=== PATIENT | female | born 1965 | race Caucasian/White ===

== ENCOUNTER 2018-08-28 18:53 | Emergency (ER) | payer SELFPAY ==
[2018-08-28 18:54] VITALS: BP 165/84; PULSE 94; RESP 17; TEMP 37.3; O2SAT 99; BMI 30.9
[2018-08-28] MEDS: Orphenadrine 60 MG/2 ML Ampul IM (19:46)
[2018-08-28] MEDS: HYDROmorphone 1 MG/ML Syringe SC ×2 (19:46→21:06)
--- NOTE | 2018-08-28 19:48 | ED.VISSUMM ---
- ER Visit Summary Date of Service: 08/28/18 Chief Complaint: Back pain History of Present Illness: The patient is a 52 F with low back pain for 5 days. This happened while she was riding in a car. No specific injuries. Worse with movement and use. Nothing seems to make it better. She tried stretches and juyc-dga-dbjivpa remedies with no improvement. The pain is in her bilateral lower back but worse in the left side and radiates down into her left buttock and left hip. No weakness or numbness. No bowel or bladder changes. No fevers. No history of back surgery, but she has had back injections remotely. She has a history of chronic back pain. Physical Examination: Afebrile and vital signs unremarkable. Alert and oriented. No acute distress. Uncomfortable with movements. Diffuse low back pain with tenderness, more so on the left side and into the left buttock. Straight leg raise is negative. She is neurovascular intact distally. Good strength and sensation, symmetric. Skin unremarkable. Test Results: None indicated Emergency Department Course and Treatment: Patient has myofascial back pain. There is no indication for imaging or other diagnostic testing. She was treated with a dose of Norflex and subcutaneous Dilaudid. Patient was able to stand and ambulate after treatment but was still having a great deal of pain. She received an additional dose of Dilaudid. Patient would like to go home after the second dose. She did not want admission for pain control. Patient was given a prescription for anti-inflammatories, muscle relaxers, and a short course of [place]. Follow-up with primary care or return for any new or worsening issues. Treatment Plan: As above Disposition: Discharge Impression: 1. Sciatica This note was generated with [employer] dictation software. It may contain incorrect words, spelling, and punctuation that were not noted in review of the chart prior to signing ED Disposition - Plan for ED Patient: Disposition: Home or Assisted Living Instructions: ED Spasm Back No Trauma Prescriptions: Hydrocodone Bitart/Apap 5-325 [[place] 5MG-325MG] 1 tab PO Q6H PRN PRN 3 Days #10 tab PRN Reason: Pain RX: Naproxen [Naprosyn] 500 mg PO BID PRN #20 tab Cyclobenzaprine [Flexeril] 10 mg PO TID PRN #20 tab PRN Reason: Muscle Spasm Referrals: Patricia Marshall [NON-STAFF] -
--- NOTE | 2018-08-28 19:52 | ED.DCSUM_ITS ---
- ER Visit Summary Date of Service: 08/28/18 Chief Complaint: Back pain History of Present Illness: The patient is a 52 F with low back pain for 5 days. This happened while she was riding in a car. No specific injuries. Worse with movement and use. Nothing seems to make it better. She tried stretches and gcbe-azu-nrbqnam remedies with no improvement. The pain is in her bilateral lower back but worse in the left side and radiates down into her left buttock and left hip. No weakness or numbness. No bowel or bladder changes. No fevers. No history of back surgery, but she has had back injections remotely. She has a history of chronic back pain. Physical Examination: Afebrile and vital signs unremarkable. Alert and oriented. No acute distress. Uncomfortable with movements. Diffuse low back pain with tenderness, more so on the left side and into the left buttock. Straight leg raise is negative. She is neurovascular intact distally. Good strength and sensation, symmetric. Skin unremarkable. Test Results: None indicated Emergency Department Course and Treatment: Patient has myofascial back pain. There is no indication for imaging or other diagnostic testing. She was treated with a dose of Norflex and subcutaneous Dilaudid. Patient was able to stand and ambulate after treatment but was still having a great deal of pain. She received an additional dose of Dilaudid. Patient would like to go home after the second dose. She did not want admission for pain control. Patient was given a prescription for anti-inflammatories, muscle relaxers, and a short course of [place]. Follow-up with primary care or return for any new or worsening issues. Treatment Plan: As above Disposition: Discharge Impression: 1. Sciatica This note was generated with [employer] dictation software. It may contain incorrect words, spelling, and punctuation that were not noted in review of the chart prior to signing ED Disposition - Plan for ED Patient: Disposition: Home or Assisted Living Instructions: ED Spasm Back No Trauma Prescriptions: Hydrocodone Bitart/Apap 5-325 [[place] 5MG-325MG] 1 tab PO Q6H PRN PRN 3 Days #10 tab PRN Reason: Pain RX: Naproxen [Naprosyn] 500 mg PO BID PRN #20 tab Cyclobenzaprine [Flexeril] 10 mg PO TID PRN #20 tab PRN Reason: Muscle Spasm Referrals: Patricia Marshall [NON-STAFF] -
--- NOTE | 2018-08-28 20:41 | ED.DEP ---
ED Disposition - Plan for ED Patient: Instructions: ED Spasm Back No Trauma Prescriptions: Hydrocodone Bitart/Apap 5-325 [[place] 5MG-325MG] 1 tab PO Q6H PRN PRN 3 Days #10 tab PRN Reason: Pain Naproxen [Naprosyn] 500 mg PO BID PRN #20 tab Cyclobenzaprine [Flexeril] 10 mg PO TID PRN #20 tab PRN Reason: Muscle Spasm Referrals: Patricia Marshall [NON-STAFF] -
[2018-08-28 21:16] VITALS: BP 127/76; PULSE 87; RESP 16; O2SAT 97
== END 2018-08-28 21:19 | disposition home or self-care (01) ==
LOC: ED 20:04
PROVIDERS: Emergency Provider Emergency Medicine
DX: M54.42 Lumbago with sciatica, left side (principal)
CPT/HCPCS: 96372; 99282